=== PATIENT | male | born 1955 | race Caucasian/White ===

== ENCOUNTER 2022-06-30 15:13 | Emergency (ER) | payer OTHER ==
[2022-06-30 15:41] VITALS: BP 105/52; PULSE 61; RESP 18; TEMP 97.9; BMI 25.0
[2022-06-30] MEDS ORDERED: MAGNESIUM 1GM/D5W 100ML - 100 ML IVPB IVPB ONE (18:38)
[2022-06-30] MEDS ORDERED: MAGNESIUM 1GM/D5W - 1 GM/100 ML IVPB IVPB ONE (19:19)
[2022-06-30 20:14] LABS: BASO % 0.7 % (0-2.0); EOS % 2.1 % (0-4.5); HEMATOCRIT 38.1 % (35.4-49); HEMOGLOBIN 12.8 GM/dL (11.7-16.9); LYMPH % 21.1 % (8-40); MCH 30.3 pg (25.7-33.7); MCHC 33.6 g/dl (32.0-35.9); MEAN CELL VOLUME 90.2 fl (80-96); MEAN PLT VOLUME 8.5 fl (7.5-11.1); MONO % 6.8 % (3.8-10.2); NEUT % 69.3 % (42.8-82.8); PLATELET COUNT 228 10^3/uL (134-434); RBC 4.22 M/mm3 (4.00-5.60); RDW 13.8 % (11.9-15.9); WHITE BLOOD COUNT 7.9 K/mm3 (4.0-10.0)
[2022-06-30 20:37] LABS: ALBUMIN 3.2 g/dl (3.4-5.0); BLOOD UREA NITROGEN 28.2 mg/dL (7-18); CALCIUM 8.6 mg/dL (8.5-10.1)
[2022-06-30 20:41] LABS: BILIRUBIN,TOTAL 0.3 mg/dL (0.2-1); TOT PROT 6.3 g/dl (6.4-8.2)
[2022-06-30] MEDS ORDERED: POTASSIUM CHLORIDE TABS 20 MEQ TABLET.ER (FP) PO ONE ×2 (21:44→21:59)
[2022-06-30] MEDS ORDERED: KCL 10 MEQ IVPB 10 MEQ/100 ML INFUS.BAG IVPB SCH (21:45)
[2022-06-30] MEDS ORDERED: KCL 10 MEQ IVPB 10 MEQ/100 ML INFUS.BAG IVPB ONE (21:59)
== END 2022-06-30 23:53 | disposition short-term general hospital (02) ==
LOC: JER 15:13
PROC: 3E033GC Introduction of Other Therapeutic Substance into Peripheral Vein, Percutaneous Approach (ICD-10-PCS; principal; 2022-06-30)
DX: F10.929 Alcohol use, unspecified with intoxication, unspecified (principal); Y90.7 Blood alcohol level of 200-239 mg/100 ml
CPT/HCPCS: 36415; 80053; 80307; 83735; 85025; 93005; 93010; 99285-25

== ENCOUNTER 2022-07-01 01:51 | Inpatient (IN) | payer OTHER ==
[2022-07-01 02:16] VITALS: BMI 24.2
[2022-07-01] MEDS ORDERED: BENZOCAINE/MENTHOL (CHLORASEPTIC ) LOZENGE MM PRN (02:44)
[2022-07-01] MEDS ORDERED: MAGNESIUM HYDROX 2400MG/30ML ORAL SUSPENSION 30 ML CUP PO PRN (02:44)
[2022-07-01] MEDS ORDERED: ONDANSETRON *ODT* 4 MG TABLET SL PRN ×2 (02:44→09:15)
[2022-07-01] MEDS ORDERED: guaiFENesin 600 MG TABLET.ER (FP) PO PRN (02:44)
[2022-07-01] MEDS ORDERED: LOPERAMIDE HCL 2 MG CAPSULE PO PRN (02:44)
[2022-07-01] MEDS ORDERED: IBUPROFEN 400 MG TABLET (FP) PO PRN (02:44)
[2022-07-01] MEDS ORDERED: IBUPROFEN 600 MG TABLET (FP) PO PRN (02:44)
[2022-07-01] MEDS ORDERED: NALOXONE HCL (KLOXXADO) 8 MG SPRAY NS PRN (02:44)
[2022-07-01] MEDS ORDERED: METHOCARBAMOL 500 MG TABLET PO PRN (02:44)
[2022-07-01] MEDS ORDERED: BENZONATATE 200 MG CAPSULE PO PRN (02:44)
[2022-07-01] MEDS ORDERED: MAG HYDROX/AL HYDROX/SIMETH 30 ML UNIT-DOSE CUP PO PRN (02:44)
[2022-07-01] MEDS ORDERED: POLYETHYLENE GLYCOL (HEALTHYLAX) 3350 17 GM PACKET PO PRN (02:44)
[2022-07-01] MEDS ORDERED: DICYCLOMINE HCL 10 MG CAPSULE PO PRN (02:44)
[2022-07-01] MEDS ORDERED: BISMUTH SUBSALICYLATE 524 MG/30 ML PO PRN (02:44)
[2022-07-01] MEDS ORDERED: ACETAMINOPHEN 325 MG TABLET (FP) PO PRN (02:44)
[2022-07-01] MEDS ORDERED: NALOXONE HCL 0.4 MG/ML VIAL IM PRN (02:44)
[2022-07-01] MEDS ORDERED: chlordiazePOXIDE HCL 25 MG CAPSULE PO PRN (08:50)
[2022-07-01] MEDS ORDERED: chlordiazePOXIDE HCL 25 MG CAPSULE PO ONE (09:15)
[2022-07-01] MEDS ORDERED: PRENATAL VITAMINS W/ FOLIC ACID TABLET (FP) PO ONE (09:25)
[2022-07-01] MEDS ORDERED: chlordiazePOXIDE HCL 25 MG CAPSULE ONE (09:25)
[2022-07-01] MEDS ORDERED: NICOTINE 21 MG/24 HOURS TOPICAL PATCH ONE (09:25)
[2022-07-01] MEDS: NICOTINE 21 MG/24 HOURS TOPICAL PATCH TD SCH (09:44)
[2022-07-01] MEDS: PRENATAL VITAMINS W/ FOLIC ACID TABLET (FP) PO SCH (09:44)
[2022-07-01] MEDS ORDERED: chlordiazePOXIDE HCL 25 MG CAPSULE PO SCH (11:00)
[2022-07-01] MEDS: diazePAM 5 MG TABLET PO SCH ×3 (12:22→22:21)
[2022-07-01] MEDS: diazePAM 5 MG TABLET PO PRN (12:25)
[2022-07-01] MEDS: NICOTINE 10 MG CARTRIDGE (INHALER) IH PRN (15:54)
[2022-07-01] MEDS ORDERED: MELATONIN 5 MG TABLETS PO SCH (22:00)
[2022-07-01] MEDS: THIAMINE HCL 100 MG TABLET (FP) PO SCH (22:21)
[2022-07-01] MEDS: SUVOREXANT 10 MG TABLET PO PRN (22:23)
[2022-07-02] MEDS: diazePAM 5 MG TABLET PO SCH ×4 (05:26→22:09)
[2022-07-02] MEDS: NICOTINE 21 MG/24 HOURS TOPICAL PATCH TD SCH (10:38)
[2022-07-02] MEDS: PRENATAL VITAMINS W/ FOLIC ACID TABLET (FP) PO SCH (10:38)
[2022-07-02] MEDS: NICOTINE 10 MG CARTRIDGE (INHALER) IH PRN ×2 (10:38→15:55)
[2022-07-02 11:14] LABS: HEMATOCRIT 38.4 % (35.4-49); HEMOGLOBIN 13.2 GM/dL (11.7-16.9); MCH 31.3 pg (25.7-33.7); MCHC 34.5 g/dl (32.0-35.9); MEAN CELL VOLUME 90.8 fl (80-96); MEAN PLT VOLUME 9.8 fl (7.5-11.1); PLATELET COUNT 212 10^3/uL (134-434); RBC 4.23 M/mm3 (4.00-5.60); RDW 13.9 % (11.9-15.9); WHITE BLOOD COUNT 4.7 K/mm3 (4.0-10.0)
[2022-07-02] MEDS ORDERED: LACTULOSE 20 GM/30 ML UDC (FOR ORAL USE ONLY) PO ONE (19:22)
[2022-07-02] MEDS: THIAMINE HCL 100 MG TABLET (FP) PO SCH (22:09)
[2022-07-02] MEDS: NICOTINE POLACRILEX 2 MG GUM BUC PRN (22:09)
[2022-07-02] MEDS: SUVOREXANT 10 MG TABLET PO PRN (22:12)
[2022-07-03 01:35] LABS: CALCIUM 8.6 mg/dL (8.5-10.1)
[2022-07-03 01:36] LABS: ALBUMIN 3.4 g/dl (3.4-5.0); BLOOD UREA NITROGEN 24.2 mg/dL (7-18)
[2022-07-03 01:39] LABS: CREATININE 0.9 mg/dL (0.55-1.3)
[2022-07-03 01:42] LABS: BILIRUBIN,TOTAL 0.4 mg/dL (0.2-1); TOT PROT 6.5 g/dl (6.4-8.2)
[2022-07-03] MEDS ORDERED: chlordiazePOXIDE HCL 25 MG CAPSULE PO SCH (05:00)
[2022-07-03] MEDS: diazePAM 5 MG TABLET PO SCH ×3 (05:28→22:07)
[2022-07-03] MEDS: NICOTINE POLACRILEX 2 MG GUM BUC PRN ×2 (05:29→10:21)
[2022-07-03] MEDS: NICOTINE 21 MG/24 HOURS TOPICAL PATCH TD SCH (10:20)
[2022-07-03] MEDS: NICOTINE 10 MG CARTRIDGE (INHALER) IH PRN (10:21)
[2022-07-03] MEDS: PRENATAL VITAMINS W/ FOLIC ACID TABLET (FP) PO SCH (10:21)
[2022-07-03] MEDS: diazePAM 5 MG TABLET PO PRN ×2 (10:22→18:30)
[2022-07-03] MEDS: THIAMINE HCL 100 MG TABLET (FP) PO SCH (22:06)
[2022-07-03] MEDS: SUVOREXANT 10 MG TABLET PO PRN (22:07)
[2022-07-04] MEDS ORDERED: chlordiazePOXIDE HCL 10 MG CAPSULE PO PRN
[2022-07-04] MEDS ORDERED: chlordiazePOXIDE HCL 10 MG CAPSULE PO SCH (05:00)
[2022-07-04] MEDS ORDERED: diazePAM 5 MG TABLET PO SCH (06:00)
[2022-07-04] MEDS: NICOTINE 21 MG/24 HOURS TOPICAL PATCH TD SCH (09:09)
[2022-07-04] MEDS: PRENATAL VITAMINS W/ FOLIC ACID TABLET (FP) PO SCH (09:10)
[2022-07-04 09:20] VITALS: BP 111/63; PULSE 85; RESP 18; TEMP 97.9
[2022-07-04] MEDS ORDERED: LACTULOSE 20 GM/30 ML UDC (FOR ORAL USE ONLY) PO SCH (14:00)
[2022-07-05] MEDS ORDERED: chlordiazePOXIDE HCL 10 MG CAPSULE PO SCH (05:00)
[2022-07-05] MEDS ORDERED: diazePAM 5 MG TABLET PO ONE (06:00)
[2022-07-06] MEDS ORDERED: chlordiazePOXIDE HCL 10 MG CAPSULE PO ONE (05:00)
== END 2022-07-04 09:38 | disposition home or self-care (01) | DRG 897 ==
LOC: YASAS 01:51 → Y6N 10:19
PROVIDERS: ADMIT Allergy & Immunology; ATTEND Surgery
PROC: HZ2ZZZZ Detoxification Services for Substance Abuse Treatment (ICD-10-PCS; principal; 2022-07-01)
DX: F10.230 Alcohol dependence with withdrawal, uncomplicated (principal); F17.210 Nicotine dependence, cigarettes, uncomplicated; F10.280 Alcohol dependence with alcohol-induced anxiety disorder; F10.282 Alcohol dependence with alcohol-induced sleep disorder; F10.24 Alcohol dependence with alcohol-induced mood disorder; F32.A Depression, unspecified; R79.89 Other specified abnormal findings of blood chemistry; Z96.643 Presence of artificial hip joint, bilateral
CPT/HCPCS: 36415; 80053; 82140; 85027; 86780; 87811; 93005; 93010; C9803-CS; Q0162; U0003; U0005

== ENCOUNTER 2022-08-19 14:17 | Observation (INO) | payer OTHER ==
[2022-08-19 14:24] VITALS: BMI 23.3
[2022-08-19] MEDS ORDERED: THIAMINE HCL 200 MG/2 ML VIAL IVPB ONE (14:48)
[2022-08-19] MEDS ORDERED: FOLIC ACID 5 MG/1 ML SQ ONE (14:48)
[2022-08-19] MEDS ORDERED: SODIUM CHLORIDE 0.9% 500 ML INFUS.BAG IV ONE (14:48)
[2022-08-19] MEDS ORDERED: MULTIVIT INJ. ADULT COMBO WITH VIT K 1 COMBO 10 ML VIAL IV ONE (14:49)
[2022-08-19] MEDS ORDERED: ONDANSETRON 4 MG/2 ML VIAL IVPUSH ONE ×2 (14:49→18:13)
[2022-08-19] MEDS ORDERED: THIAMINE HCL 200 MG/2 ML VIAL ONE (14:59)
[2022-08-19] MEDS ORDERED: ONDANSETRON 4 MG/2 ML VIAL ONE ×2 (14:59→19:14)
[2022-08-19] MEDS ORDERED: FOLIC ACID INJECTION - 1 MG, THIAMINE HCL 100 MG, MULTIVIT INJECTION ADULT 10 ML in SOD... IVPB ONE (15:15)
[2022-08-19 15:53] LABS: BASO % 0.4 % (0-2.0); EOS % 0.1 % (0-4.5); HEMATOCRIT 42.4 % (35.4-49); HEMOGLOBIN 14.6 GM/dL (11.7-16.9); LYMPH % 6.6 % (8-40); MCH 31.1 pg (25.7-33.7); MCHC 34.4 g/dl (32.0-35.9); MEAN CELL VOLUME 90.5 fl (80-96); MEAN PLT VOLUME 7.9 fl (7.5-11.1); MONO % 7.6 % (3.8-10.2); NEUT % 85.3 % (42.8-82.8); PLATELET COUNT 232 10^3/uL (134-434); RBC 4.69 M/mm3 (4.00-5.60); RDW 14.4 % (11.9-15.9); WHITE BLOOD COUNT 9.4 K/mm3 (4.0-10.0)
[2022-08-19 16:14] LABS: CHLORIDE 96 mmol/L (98-107); POTASSIUM 5.2 mmol/L (3.5-5.1); SODIUM 136 mmol/L (136-145)
[2022-08-19 16:16] LABS: BLOOD UREA NITROGEN 26.2 mg/dL (7-18); CALCIUM 9.8 mg/dL (8.5-10.1); LIPASE 83 U/L (73-393)
[2022-08-19 16:17] LABS: ALBUMIN 3.8 g/dl (3.4-5.0); ANION GAP 16 MMOL/L (8-16); CO2 24 mmol/L (21-32); GLUCOSE,RANDOM 148 mg/dL (74-106)
[2022-08-19 16:19] LABS: SGOT/AST 89 U/L (15-37); SGPT/ALT 84 U/L (13-61)
[2022-08-19 16:21] LABS: BILIRUBIN,TOTAL 1.8 mg/dL (0.2-1); TOT PROT 7.5 g/dl (6.4-8.2)
[2022-08-19 16:22] LABS: ALK PHOS 69 U/L (45-117)
[2022-08-19] MEDS ORDERED: chlordiazePOXIDE HCL 25 MG CAPSULE PO ONE (18:10)
[2022-08-19] MEDS ORDERED: ASPIRIN 81 MG CHEWABLE TABLETS PO ONE (18:10)
[2022-08-19] MEDS ORDERED: ASPIRIN 325 MG TABLET ONE (19:14)
[2022-08-19] MEDS ORDERED: chlordiazePOXIDE HCL 25 MG CAPSULE ONE (19:14)
[2022-08-19 19:46] LABS: INR 1.04 (0.83-1.09); PROTHROMBIN TIME (PATIENT) 12.1 SEC (9.7-13.0)
[2022-08-19 19:49] LABS: ACTIVATED PTT 25.5 SECONDS (25.2-36.5)
[2022-08-19] MEDS ORDERED: ONDANSETRON 4 MG/2 ML VIAL IVPUSH PRN (20:05)
[2022-08-19] MEDS: SODIUM CHLORIDE 1,000 ML IV SCH ×2 (20:19→22:13)
[2022-08-19 21:00] LABS: CHOLESTEROL 223 mg/dL (50-200)
[2022-08-19 21:01] LABS: LDL CHOLESTEROL (ONLY SJRH) 114 mg/dL (5-100)
[2022-08-19 21:03] LABS: HDL CHOLESTEROL 99 mg/dL (40-60)
[2022-08-19] MEDS: LORazepam 1 MG TABLET PO PRN (22:12)
[2022-08-19 22:19] LABS: GAMMA GLUTAMYL TRANSPEPTIDASE 59 U/L (5-85)
[2022-08-19 22:22] LABS: BILIRUBIN,DIRECT 0.5 mg/dL (0.0-0.2)
[2022-08-20 03:48] LABS: EPI CELLS 7 /uL (0-25.1); HYALINE CASTS 3 /uL (0-3.1); PH,URINE 5.5 (5.0-8.0); URINE APPEARANCE CLEAR; URINE BACTERIA 2 /uL (0-1359); URINE BILIRUBIN 1+ (NEGATIVE); URINE COLOR DK YELLOW; URINE GLUCOSE (UA) NEGATIVE (NEGATIVE); URINE KETONE 1+ (NEGATIVE); URINE LEUK ESTERASE NEGATIVE (NEGATIVE); URINE NITRITE NEGATIVE (NEGATIVE); URINE PROTEIN 3+ (NEGATIVE); URINE RBC 44 /uL (0-23.9); URINE WBC 12 /uL (0-25.8)
[2022-08-20 03:56] LABS: OPIATES, URI NEGATIVE (NEGATIVE); URINE BARBITURATES NEGATIVE (NEGATIVE)
[2022-08-20 03:57] LABS: URINE BENZODIAZEPINES NEGATIVE (NEGATIVE)
[2022-08-20 03:58] LABS: COCAINE, UR NEGATIVE (NEGATIVE)
[2022-08-20 03:59] LABS: METHADONE, UR NEGATIVE (NEGATIVE); PHENCYCLIDINE,URINE NEGATIVE (NEGATIVE); URINE AMPHETAMINES NEGATIVE (NEGATIVE)
[2022-08-20] MEDS ORDERED: LORazepam 1 MG TABLET PO SCH (05:00)
[2022-08-20] MEDS: LORazepam 1 MG TABLET PO PRN (06:38)
[2022-08-20 07:32] LABS: HEMATOCRIT 37.3 % (35.4-49); HEMOGLOBIN 13.2 GM/dL (11.7-16.9); MCH 32.1 pg (25.7-33.7); MCHC 35.4 g/dl (32.0-35.9); MEAN CELL VOLUME 90.6 fl (80-96); PLATELET COUNT 176 10^3/uL (134-434); RBC 4.11 M/mm3 (4.00-5.60); RDW 14.3 % (11.9-15.9); WHITE BLOOD COUNT 6.8 K/mm3 (4.0-10.0)
[2022-08-20] MEDS ORDERED: THIAMINE HCL 200 MG/2 ML VIAL IVPB ONE (07:45)
[2022-08-20 07:47] LABS: POTASSIUM 3.7 mmol/L (3.5-5.1)
[2022-08-20 07:55] LABS: ALBUMIN 3.1 g/dl (3.4-5.0); BLOOD UREA NITROGEN 30.3 mg/dL (7-18); MAGNESIUM 1.4 mg/dL (1.8-2.4); PHOSPHOROUS 3.1 mg/dL (2.5-4.9)
[2022-08-20 07:57] LABS: BILIRUBIN,TOTAL 1.2 mg/dL (0.2-1)
[2022-08-20 08:02] LABS: CALCIUM 8.1 mg/dL (8.5-10.1)
[2022-08-20] MEDS ORDERED: MAGNESIUM SULF 50% (8.12 MEQ/2 ML-1 GM VIAL) IVPB ONE (08:44)
[2022-08-20] MEDS: PANTOPRAZOLE 40 MG TABLET PO SCH (09:39)
[2022-08-20] MEDS: THIAMINE HCL 100 MG TABLET (FP) PO SCH (09:39)
[2022-08-20] MEDS: ENOXAPARIN NA (PORCINE) 40 MG/0.4 ML DISP.SYRIN SQ SCH (09:40)
[2022-08-20] MEDS: FOLIC ACID 1 MG TABLET (FP) PO SCH (09:40)
[2022-08-20] MEDS ORDERED: LORazepam 1 MG TABLET PO ONE (23:00)
[2022-08-21] MEDS ORDERED: LORazepam 0.5 MG TABLET PO SCH (05:00)
[2022-08-21 08:22] LABS: HEMATOCRIT 38.1 % (35.4-49); HEMOGLOBIN 13.1 GM/dL (11.7-16.9); MCH 31.4 pg (25.7-33.7); MCHC 34.2 g/dl (32.0-35.9); MEAN CELL VOLUME 91.8 fl (80-96); MEAN PLT VOLUME 9.1 fl (7.5-11.1); PLATELET COUNT 162 10^3/uL (134-434); RBC 4.16 M/mm3 (4.00-5.60); RDW 14.1 % (11.9-15.9); WHITE BLOOD COUNT 7.7 K/mm3 (4.0-10.0)
[2022-08-21 08:41] LABS: BLOOD UREA NITROGEN 24.2 mg/dL (7-18); MAGNESIUM 1.6 mg/dL (1.8-2.4)
[2022-08-21 08:44] LABS: CREATININE 0.8 mg/dL (0.55-1.3); PHOSPHOROUS 3.6 mg/dL (2.5-4.9)
[2022-08-21 08:45] LABS: TOT PROT 5.8 g/dl (6.4-8.2)
[2022-08-21 08:49] LABS: BILIRUBIN,TOTAL 0.7 mg/dL (0.2-1); CALCIUM 8.3 mg/dL (8.5-10.1)
[2022-08-21] MEDS: FOLIC ACID 1 MG TABLET (FP) PO SCH (09:21)
[2022-08-21] MEDS: ENOXAPARIN NA (PORCINE) 40 MG/0.4 ML DISP.SYRIN SQ SCH (09:21)
[2022-08-21] MEDS: PANTOPRAZOLE 40 MG TABLET PO SCH (09:21)
[2022-08-21] MEDS: THIAMINE HCL 100 MG TABLET (FP) PO SCH (09:21)
[2022-08-21] MEDS: LORazepam 0.5 MG TABLET PO PRN ×2 (09:47→21:37)
[2022-08-21 16:10] VITALS: RESP 18
[2022-08-22] MEDS ORDERED: LORazepam 0.5 MG TABLET PO ONE (05:00)
[2022-08-22 08:44] LABS: BASO % 0.6 % (0-2.0); EOS % 3.5 % (0-4.5); HEMATOCRIT 39.6 % (35.4-49); HEMOGLOBIN 13.6 GM/dL (11.7-16.9); LYMPH % 23.7 % (8-40); MCH 31.4 pg (25.7-33.7); MCHC 34.4 g/dl (32.0-35.9); MEAN CELL VOLUME 91.2 fl (80-96); MEAN PLT VOLUME 9.1 fl (7.5-11.1); MONO % 7.6 % (3.8-10.2); NEUT % 64.6 % (42.8-82.8); PLATELET COUNT 164 10^3/uL (134-434); RBC 4.35 M/mm3 (4.00-5.60); RDW 14.1 % (11.9-15.9); WHITE BLOOD COUNT 6.4 K/mm3 (4.0-10.0)
[2022-08-22 08:45] LABS: POTASSIUM 4.3 mmol/L (3.5-5.1)
[2022-08-22] MEDS ORDERED: MAGNESIUM 2GM/50ML STERILE WATER IVPB IVPB ONE (08:45)
[2022-08-22 08:47] LABS: CALCIUM 8.8 mg/dL (8.5-10.1)
[2022-08-22 08:48] LABS: ALBUMIN 3.2 g/dl (3.4-5.0); BLOOD UREA NITROGEN 19.9 mg/dL (7-18); MAGNESIUM 1.6 mg/dL (1.8-2.4)
[2022-08-22 08:51] LABS: CREATININE 0.8 mg/dL (0.55-1.3); PHOSPHOROUS 4.1 mg/dL (2.5-4.9)
[2022-08-22 08:52] LABS: BILIRUBIN,TOTAL 0.6 mg/dL (0.2-1); TOT PROT 6.3 g/dl (6.4-8.2)
[2022-08-22 09:46] LABS: INR 0.99 (0.83-1.09); PROTHROMBIN TIME (PATIENT) 11.5 SEC (9.7-13.0)
[2022-08-22 09:48] LABS: ACTIVATED PTT 29.2 SECONDS (25.2-36.5)
[2022-08-22] MEDS: FOLIC ACID 1 MG TABLET (FP) PO SCH (10:11)
[2022-08-22] MEDS: ENOXAPARIN NA (PORCINE) 40 MG/0.4 ML DISP.SYRIN SQ SCH (10:11)
[2022-08-22] MEDS: PANTOPRAZOLE 40 MG TABLET PO SCH (10:11)
[2022-08-22] MEDS: THIAMINE HCL 100 MG TABLET (FP) PO SCH (10:11)
[2022-08-22] MEDS: MULTIVITAMINS (DAILY MVI) TABLET (FP) PO SCH (10:12)
[2022-08-22] MEDS ORDERED: LORazepam 0.5 MG TABLET PO PRN (22:31)
[2022-08-22] MEDS ORDERED: MELATONIN 5 MG TABLETS PO PRN (22:46)
[2022-08-23 07:51] LABS: HEMATOCRIT 37.9 % (35.4-49); HEMOGLOBIN 13.3 GM/dL (11.7-16.9); MCH 31.8 pg (25.7-33.7); MEAN CELL VOLUME 90.7 fl (80-96); MEAN PLT VOLUME 9.6 fl (7.5-11.1); PLATELET COUNT 168 10^3/uL (134-434); RBC 4.18 M/mm3 (4.00-5.60); WHITE BLOOD COUNT 6.8 K/mm3 (4.0-10.0)
[2022-08-23 08:10] LABS: POTASSIUM 3.9 mmol/L (3.5-5.1)
[2022-08-23 08:13] LABS: CALCIUM 8.5 mg/dL (8.5-10.1)
[2022-08-23 08:14] LABS: ALBUMIN 3.2 g/dl (3.4-5.0); BLOOD UREA NITROGEN 22.4 mg/dL (7-18); MAGNESIUM 1.7 mg/dL (1.8-2.4)
[2022-08-23 08:17] LABS: CREATININE 0.8 mg/dL (0.55-1.3); PHOSPHOROUS 4.3 mg/dL (2.5-4.9)
[2022-08-23 08:18] LABS: BILIRUBIN,TOTAL 0.7 mg/dL (0.2-1); TOT PROT 6.4 g/dl (6.4-8.2)
[2022-08-23] MEDS: ENOXAPARIN NA (PORCINE) 40 MG/0.4 ML DISP.SYRIN SQ SCH (09:19)
[2022-08-23] MEDS: FOLIC ACID 1 MG TABLET (FP) PO SCH (09:19)
[2022-08-23] MEDS: THIAMINE HCL 100 MG TABLET (FP) PO SCH (09:19)
[2022-08-23] MEDS: MULTIVITAMINS (DAILY MVI) TABLET (FP) PO SCH (09:19)
[2022-08-23] MEDS: PANTOPRAZOLE 40 MG TABLET PO SCH (09:19)
[2022-08-23 09:24] VITALS: BP 130/78; PULSE 58; TEMP 98.8
[2022-08-23] MEDS ORDERED: MAGNESIUM 2GM/50ML STERILE WATER IVPB IVPB ONE (10:35)
== END 2022-08-23 12:47 | disposition home or self-care (01) ==
LOC: JER 14:17 → INTOOBSV 19:25 → JERBED 19:25 → J4W 22:03
PROVIDERS: ADMIT Internal Medicine; ATTEND Internal Medicine
PROC: 3E023GC Introduction of Other Therapeutic Substance into Muscle, Percutaneous Approach (ICD-10-PCS; principal; 2022-08-19)
PROC: 3E033GC Introduction of Other Therapeutic Substance into Peripheral Vein, Percutaneous Approach (ICD-10-PCS; 2022-08-19)
PROC: 3E0337Z Introduction of Electrolytic and Water Balance Substance into Peripheral Vein, Percutaneous Approach (ICD-10-PCS; 2022-08-19)
DX: F10.99 Alcohol use, unspecified with unspecified alcohol-induced disorder (principal); R77.8 Other specified abnormalities of plasma proteins; R31.9 Hematuria, unspecified
CPT/HCPCS: 0241U-QW; 36415; 76705-TC; 76775-TC; 80053; 80061; 80307; 81003; 82248; 82977; 83690; 83735; 84100; 84439; 84443; 84484; 85025; 85027; 85610; 85730; 86850; 86900; 86901; 93005; 93010; 93306-TC; 96361; 96365; 96372; 96375; 99285-25; G0378